=== PATIENT | female | born 1975 | race Two or more races ===

== ENCOUNTER 2024-11-05 11:13 | Outpatient (AMB) | payer OTHER, SELFPAY ==
--- NOTE | 2024-11-05 11:27 | MHC.OFFVIS ---
Intake Visit Reasons: 6 mnts Migraine Allergies No Known Allergies Allergy (Verified 11/05/24 11:37) Medication List - Last Reconciled 11/05/24 by Jannie Brown CNP bupropion HCl XL 300 mg PO QAM smdpmsyvgw-jsrafjccvbzcs-jaos 50-325-40 mg 1 - 2 tabs PO DAILY PRN cholecalciferol (vitamin D3) 1,250 mcg PO QWEEK gabapentin 300 mg PO BEDTIME PRN hydroxyzine HCl mg PO paroxetine HCl 40 mg PO QAM sumatriptan succinate mg PO topiramate 50 mg PO DAILY HPI Comments Details: 48 y/o woman with migraine and insomnia. She was doing okay. Migraines were much better. No significant migraines recently. She used butalbital as needed which helped with strong headaches. Sleep was on and off, but better overall. [facility] Medical History (Updated 11/05/24 @ 11:29 by Jannie Brown CNP) Depression Insomnia Migraine Review of Systems Const Denies chills, Denies daytime sleepiness, Denies fatigue, Denies fever(s), Denies frequent falls, Reports headache(s), Denies increased appetite, Denies poor appetite, Denies snoring, Denies weakness, Denies weight gain and Denies weight loss Eyes Denies loss of vision ENT Denies vertigo, Denies dizziness and Reports headache(s) Card Denies chest pain at rest, Denies chest pain with activity, Denies syncope, Denies leg edema and Denies palpitations Resp Denies snoring GI Denies constipation, Denies heartburn, Denies diarrhea and Denies nausea Denies urinary frequency, Denies urinary incontinence and Denies urinary urgency Musc Denies abnormal gait, Denies numbness and Denies tingling Skin/Breast Denies dry skin and Denies rash Neuro Denies abnormal gait, Denies vertigo, Denies dizziness, Denies syncope, Denies frequent falls, Reports headache(s), Denies lack of coordination, Denies loss of vision, Denies memory loss, Denies numbness, Denies restless legs, Denies seizure-like activity, Denies tingling, Denies paresthesias, Denies tremor(s) and Denies weakness Psych Denies anxiety, Denies depression, Denies auditory hallucinations, Denies memory loss, Denies visual hallucinations and Denies suicidal ideation Endo Denies fatigue and Denies palpitations Physical Exam Const Other: General Appearance:? normal, in no acute distress. Skin:? no rashes, no significant birthmarks. Heart:? S1, S2 normal, no murmurs. Lungs:? clear anteriorly and posteriorly. Extremities:? no edema. Psych:? alert, oriented, cognitive function intact, cooperative with exam. Neuro Other: Mental Status:?Normal attention, orientation, memory and affect.? Cranial Nerves:?Pupils are equal, round and reactive to light. External occular muscles are intact. Visual gambino are full. Face is symmetrical. Facial sensations are normal. Tongue is midline. Palate elevates symmetrically. Shoulder shrugging is normal. Hearing to bedside conversation is normal. Motor Examination:?Normal muscle tone, bulk and strength,?Deep tendon reflexes are 2+,?Plantars are flexor.? Sensory Exam:?....? Coordination:?No ataxia,?no titubation.? Gait Exam: Within normal limits. Cerebellar Signs:?Kqblhb-rs-quzc and apxf-ms-swnj is normal.? Extrapyramidal System:?No tremor, rigidity with normal facial expressions.? Pronator Drift:?Not present.? Involuntary Movements:?No tremors seen.? Speech:?Normal.? Results Reviewed Results Reviewed: MRI brain WO at in Dec 2016: one right parietal WM hyperintensity, non specific, could be vessel associated MRI LS at in 2018: minimal stenosis at L5/S1 Meds tried: Sumatriptan, butalbital Assessment & Plan Assessment & Plan (1) Migraine: Code(s): G43.909 - Migraine, unspecified, not intractable, without status migrainosus Category: Medical Qualifiers: Intractability: not intractable Migraine type: unspecified Status migrainosus presence: without status migrainosus Qualified Code(s): G43.909 - Migraine, unspecified, not intractable, without status migrainosus Plan: Continue topiramate 50mg 1 tablet at bedtime. Continue wxaxzwjbno-ZOWA-bywymlen 50-325-40mg 1-2 tablets as needed for headache #10 for 30 days (2) Insomnia: Code(s): G47.00 - Insomnia, unspecified Category: Medical Qualifiers: Insomnia type: unspecified Qualified Code(s): G47.00 - Insomnia, unspecified Plan Meds tried: sumatriptan, butalbital Medications: New topiramate 50 mg PO BEDTIME 90 tabs 1RF 90 days erefqshxyp-gslriezxklaic-etju 50-325-40 mg 1 - 2 tabs PO DAILY PRN 10 tabs 2RF migraine 30 days Discontinued topiramate Discontinued Reason: Order 50 mg PO DAILY betrlhodlq-akakfcekddqyh-nlvo 50-325-40 mg Discontinued Reason: Order 1 - 2 tabs PO DAILY PRN headache Coding Level of Care Code Est Pt Level 3 (04098) Diagnoses Migraine without status migrainosus, not intractable, unspecified migraine type G43.909 Intractability: not intractable Migraine type: unspecified Status migrainosus presence: without status migrainosus Insomnia, unspecified type G47.00 Insomnia type: unspecified
--- OUTSIDE RECORDS SUMMARY | 2024-11-05 12:29 | XMS_ITS | Clinical Summary ---
Author Organization [address] Address [address] [place] [phone] Phone Care Team Providers Care Restaurant Operations Manager Name Role Phone Paige Mcintyre MD Primary Care Prov ider Allergies Active Allergy Reactions Criticality Noted Date Comments Doxycycline Hyclate 06/30/2021 Skin reaction Quetiapine Fumarate Fainting 06/22/2016 syncope Medications cloNIDine (CATAPRES) 0.1 mg tablet Take 1 tablet (0.1 mg total) by mouth 2 (two) times a day if needed. Prescribed by her psychiatrist Active hydrOXYzine HCL (ATARAX) 25 mg tablet Take 1 tablet (25 mg total) by mouth if needed for anxiety. Prescribed by her psychiatrist Active gabapentin (NEURONTIN) 300 mg capsule Take 1 capsule (300 mg total) by mouth if needed. Prescribed by her psychiatrist Active buPROPion XL (WELLBUTRIN XL) 300 mg 24 hr tablet Take 1 tablet (300 mg total) by mouth 1 (one) time each day in the morning. Prescribed by her psychiatrist Active topiramate (TOPAMAX) 50 mg tablet Take 1 tablet (50 mg total) by mouth 1 (one) time each day. Prescribed by Neurologist Active butalbital-acet aminophen-caffe ine (FIORICET, ESGIC) 50-325-40 mg per tablet Take 2 tablets by mouth if needed for migraine. Prescribed by Neurologist Active Combivent Respimat 20-100 mcg/actuation inhaler Inhale 1 puff by mouth if needed. Active Gavilax 17 gram/dose oral powder Take 17 g by mouth 1 (one) time. 024 Active PARoxetine (PAXIL) 30 mg tablet Take 1 tablet (30 mg total) by mouth 1 (one) time each day in the morning. Prescribed by psychiatrist Active cholecalciferol (VITAMIN D-3) 1,250 mcg (50,000 unit) capsule TAKE 1 CAPSULE BY MOUTH ONE TIME PER WEEK 8 capsule 3 025 Active naproxen (NAPROSYN) 500 mg tablet Take 1 tablet (500 mg total) by mouth 2 (two) times a day if needed for mild pain (pain). 60 tablet 5 025 2024 Active SUMAtriptan (IMITREX) 25 mg tablet Take 1 tablet (25 mg total) by mouth 1 (one) time if needed for migraine. May repeat dose once in 2 hours if no relief. Do not exceed 2 doses in 24 hours. 27 tablet 025 Active magnesium oxide (MAG-OX) 400 mg magnesium tablet Take 1 tablet (400 mg total) by mouth 1 (one) time each day. 90 tablet 1 025 Active oxyCODONE (ROXICODONE) 5 mg immediate release tabletIndicatio ns:Stress incontinence Take 1 tablet (5 mg total) by mouth every 6 (six) hours if needed for severe pain for up to 10 doses. Max Daily Amount: 20 mg 10 each 025 Active senna 8.6 mg tablet Take 1 tablet (8.6 mg total) by mouth 1 (one) time each day. 30 tablet 3 025 Active Gavilax 17 gram/dose oral powder TAKE 17 GRAMS BY MOUTH ONCE EVERY DAY 510 g 3 025 Active senna 8.6 mg tablet Take 1 tablet (8.6 mg total) by mouth 1 (one) time each day. 2024 Discontinued(R eorder) polyethylene glycol (MIRALAX) 17 gram packet Take 17 g by mouth 1 (one) time each day. 510 g 3 025 2024 Discontinued Active Problems Problem Noted Date Diagnosed Date Diverticulosis 08/03/2023 Fibromyalgia 08/03/2023 Overview (03/27/2024): Following with therapy and psychiatry Perimenopause 09/29/2022 Overview (03/27/2024): Last Assessment & Plan: I counseled Norma that her sx may be as a result of perimenopausal transition. Will not be considered menopausal until one year without menses. She was encouraged to increase her weight bearing exercise to build some muscle mass and increase metabolism. LLQ abdominal pain 07/07/2022 Overview (03/27/2024): Last Assessment & Plan: I explained to Norma that her pain seems most likely related to her inflammatory findings in her bowel. As such, I recommend she keep her follow up and colonoscopy appt with GI. She could have contribution to her pain related to a cyst, but the cyst was not visualized on either of her recent imaging studies. Since the US was inconclusive, we will repeat to evaluate, but even if she had a 3 cm simple cyst still present, I explained it would not be expected to cause pain at all. She voiced understanding. I encouraged her to work on constipation and diarrhea with diet, water, fiber. She agreed. Will discuss US results when available. Mixed hyperlipidemia 06/30/2021 Cervical radiculitis 08/06/2020 Migraine 10/11/2019 Overview (03/27/2024): Followed by [facility] (Dr. Elaina Raphael) Assessment & Plan (06/27/2024 12:31 PM EDT): Patient presented to the office for migraine headaches. I discussed the varying types of headaches, and explained the differences between different types of migraine headaches. I considered alternative causes for headaches. Reassuringly, there are no red flag symptoms. I discussed goal of management of this patient headache include nonpharmacological and pharmacological approach to reduce attack frequentcy and severity; reduce patient reliance on poorly tolerated or ineffective medication; decreased patient disability and improve quality of life. After our shared discussion, we have decided to proceed with Naproxen 500 mg orally BID, PRN, Max 1250mg/day, Sumatripan (Imitrex) 25 mg orally as a single dose, may repeat in 2 hours, Max 200mg/day, Cyclobenzaprine 5 mg orally 2 times daily PRN. We discussed the drowsing effect of medication and cautioned the patient not to drive/operate any heavy machinery while on medication. I also order magnesium for 400 mg to be taken daily. Patient was also educated on lifestyle modification. Norma was counseled on decreasing alcohol and caffeine consumption; decreasing stressor, increase physical activity, regular sleep pattern and the importance of healthy weight and diet. Patient was also inform dehydration is a trigger for migraine attacks. Therefore, it is important to keep hydrated. Patient is asked to follow back with me in 1 weeks if no improvement for re-evaluation and assess their response to treatment. Patient will call with any new/worsening symptoms or medication issues. Patient is followed by neurologist. Advised patient to contact her neurologist to schedule appointment. Orders: cyclobenzaprine (FLEXERIL) 5 mg tablet; Take 1 tablet (5 mg total) by mouth 2 (two) times a day if needed for muscle spasms. Constipation 12/10/2018 DDD (degenerative disc disease), lumbar 12/11/19 Spinal stenosis of lumbar region 12/10/2018 Tobacco use disorder 06/14/2017 Vitamin D deficiency 01/03/2017 Abnormal Pap smear of cervix 09/15/2016 Overview (03/27/2024): ASCUS, HPV positive 11/3012 Major depressive disorder 09/15/2016 Asthma in adult 08/26/2016 Endometriosis 08/26/2016 Overview (03/27/2024): Last Assessment & Plan: I did review her history which is suggestive of endometriosis. I explained that this could contribute to pain, but in the absence of endometrioma on US, she could try hormonal suppression to see if her sx improve. Encounters Date Type Department Care Team Description 10/30/2024 Telephone Gastroenterology - [place] [facility] 175 [facility] [address] [place] [address] Isamar Avila PA Refill request 10/01/2024 Telephone Adult Medicine [address] [phone] Paige Mcintyre MD Cough; Nasal Congestion from Last 3 Months Immunizations Name Administration Dates Next Due Influenza Quadravalent, MDCK , 0.5ml, with preservative (Flucelvax) 6mo and older 12/29/2016 Pfizer SARS-CoV-2 COVID-19, mRNA, LNP-S, preservative free 09/22/2020,09/01/2020 Tdap Tetanus diptheria acell ular pertussis (Boostrix; Adacel) 7yo and older 08/26/2016 Surgical History Surgery Date Site/Laterality Comments TUBAL LIGATION PROCEDURE: HISTORICAL TUBAL LIGATION APPENDECTOMY PROCEDURE: HISTORICAL APPENDECTOMY OVARIAN CYST REMOVAL PROCEDURE: MT OVARIAN CYSTECTOMY UNI/BI; COMMENT: x 1-2 ??? with loss of one tube at [facility] MULTIPLE TOOTH EXTRACTIONS PROCEDURE: HISTORICAL DENTAL EXTRACTION COLPOSCOPY 02/14/2012 PROCEDURE: MT COLPOSCOPY ENTIRE VAGINA W/CERVIX IF PRESENT; COMMENT: normal appearance. No biopsy OTHER SURGICAL HISTORY PROCEDURE: MT HYSTEROSCOPY ENDOMETRIAL ABLATION BACK SURGERY 01/2019 PROCEDURE: HISTORICAL BACK SURGERY; COMMENT: ant lumb interbody fusion (ALIF) with cage, L5-S1. [place] BREAST REDUCTION 02/2019 PROCEDURE: MT BREAST REDUCTION OTHER SURGICAL HISTORY 02/2021 Bilateral PROCEDURE: MAMMOGRAM, SCREENING, BOTH BREASTS NECK SURGERY PROCEDURE: HISTORICAL NECK SURGERY; COMMENT: cervical disc surgery COLONOSCOPY PROCEDURE: HISTORICAL COLONOSCOPY SPINE SURGERY CERVICAL FUSION Medical History Medical History Date Comments Abnormal Pap smear of cervix 09/15/2016 DX: Abnormal Pap smear of cervix; COMMENT: ASCUS, HPV positive 11/3012 Asthma in adult 08/26/2016 DX:Asthma in [place] Chronic low back pain 09/15/2016 DX:Chronic low back pain Depression 09/15/2016 DX:Depression Endometriosis 08/26/2016 DX:Endometriosis History of kidney stones 09/15/2016 DX:Hist ory of kidney stones Hyperlipidemia 06/30/2021 DX:Hyperlipidemi a Ovarian cyst DX:Ovarian cyst Epiploic appendagitis DX:Epiploi c appendagitis Diverticulosis DX:Diverticulosi s Diverticulitis DX:Diverticuliti s Left lower quadrant pain DX:Left lower quadrant pain Abdominal pain DX:Abdominal noemi n Anxiety Family History Medical History Relation Name Comments No Known Problems Daughter 1 Allergies Daughter 2 Asthma Daughter 2 Asthma Father Other: Kidney Disease Half-Brother Maternal only 1 functioning kidney Drug abuse Half-Sister Maternal overdose Kidney failure Maternal Grandfather Coronary artery disease Maternal Grandmother Coronary artery disease Mother Depression Mother Other: Pulmonary Embolism Sister 1 Arthritis Sister 2 No Known Problems Son Breast cancer Neg Hx Colon cancer Neg Hx Ovarian cancer Neg Hx Relation Name Status Comments Daughter 1 Alive Daughter 2 Alive Father Half-Brother Maternal Alive Half-Sister Maternal Maternal Grandfather Maternal Grandmother Mother Alive Sister 1 Sister 2 Alive Son Alive Social History Tobacco Use Types Packs/Day Years Used Date Smoking Tobacco: Former Cigarettes 0.3 30.1 S tarted: 09/20/1994 Smokeless Tobacco: Never Tobacco Cessation:Counseling Given: Not Answered Alcohol Use Standard Drinks/Week Comments No 0 (1 standard drink = 0.6 oz pur e alcohol) Interpersonal Safety Answer Date Record ed Physical Abuse 07/25/2024 Verbal Abuse 07/25/2024 Comments No Sex and Gender Information Value Date Recorded Sex Assigned at Female 07/25/2024 7:14 AM EDT Legal Sex Female 2:18 AM EST Gender Identity Female 07/25/2024 7:14 AM EDT Sexual Orientation Straight 07/25/2024 7: 14 AM EDT Obstetrics History Para Term AB IAB SAB Ectopic Multiple Livin g Live Births 3 3 3 Date Outcome GA Total Labor Labor/2nd/3rd Weight Sex Type Anes PTL Sabrina A1 A5 Name Clin Term Term Term Last Filed Vital Signs Vital Sign Reading Time Taken Comments Blood Pressure 98/64 07/25/2024 11:19 AM EDT Pulse 67 07/25/2024 11:19 AM EDT Temperature 36.1 C (97 F) 07/25/2024 11:19 AM EDT Respiratory Rate 16 07/25/2024 11:19 AM EDT Oxygen Saturation 100% 07/25/2024 11:19 AM EDT Inhaled Oxygen Concentration - - Weight 64.4 kg (142 lb) 07/25/2024 8:04 AM EDT Height 154.9 cm (5' 0.98 ) 07/25/2024 8:04 AM ED T Body Mass Index 26.84 07/25/2024 8:04 AM EDT Plan of Treatment Upcoming Encounters Date Type Department Care Team (Late st Contact Info) Description 11/25/2024 9:15 AM EDT Office Visit Obstetrics and Gynecology - [address] [phone] Shannan Camp, MAXWELL [address] [place] [address] 01/07/2025 3:00 PM EDT Office Visit [facility] - [address] [phone] Paige Mcintyre MD [address] [place] [address] 01/09/2025 9:50 AM EDT Office Visit Gastroenterology - [place] 175 [facility] [address] [phone] Isamar Avila PA [address] [phone] 03/28/2025 10:50 AM EST Appointment Radiology Department - [address] [phone] 04/02/2025 9:45 AM EST Office Visit Obstetrics and Gynecology - [address] [phone] Mei Reis, VIANEY [address] [place] [address] Health Maintenance Due Date Last Done Comments Hepatitis B Vaccines (1 of 3 - 19+ 3-dose series) 12/05/1995 Pneumococcal Vaccine: Pediatrics (0 to 5 Years) and At-Risk Patients (6 to 49 Years) (1 of 2 - PCV) 12/05/1995 Colorectal Cancer Screening: Colonoscopy 03/26/2022 Medicare Annual Wellness Visit 03/26/2022 Social Influencers of Health Screening 03/26/2022 COVID-19 Vaccine (2023- season) 2023 09/22/2020, 09/01/2020 Depression Screening 04/17/2024 08/03/2023 Influenza Vaccine (#1) 2024 12/29/2016 Breast Cancer Screening 03/25/2026 03/25/20 24, 06/21/2023, 03/15/2023, Additional history exists DTaP,Tdap,and Td Vaccines (2 - Td or Tdap) 08/26/2026 08/26/2016 Cervical Cancer Screening: HPV 11/03/2026 11/03/2021 Cholesterol Screening (Lipid Panel) 01/07/2029 01/08/2024, 01/08/2024 HIV Screening Completed 01/08/2024, 11/01/2021 Hepatitis C Screening Completed 01/08/2024 HIB Vaccines Aged Out No longer eligi ble based on patient's age to complete this topic HPV Vaccines Aged Out No longer eligi ble based on patient's age to complete this topic Hepatitis A Vaccines Aged Out No long er eligible based on patient's age to complete this topic IPV Vaccines Aged Out No longer eligi ble based on patient's age to complete this topic MMR Vaccines Aged Out No longer eligi ble based on patient's age to complete this topic Meningococcal ACWY Vaccine Aged Out N o longer eligible based on patient's age to complete this topic Meningococcal B Vaccine Aged Out No l onger eligible based on patient's age to complete this topic RSV Immunization Patients Under 20 months Aged Out No longer eligible based on patient's age to complete this topic Varicella Vaccines Aged Out No longer eligible based on patient's age to complete this topic Medical Devices Implanted Type Area Minister Helper Device Identifier Shelf Expiration Date Model / Serial / Lot Sponge Hemostatic 2x3.25x4in Surgifoam Gel 100mm - S00 - [id number] Implanted:Qty: 1 on 07/25/2024 by Erick Esparza MD at [facility] Hemostasis N/A: Urethra [employer] [id number]/06/[id number] Sponge Surgifoam Gel 12 X 7mm - S00 - [id number] Implanted:Qty: 2 on 07/25/2024 by Erick Esparza MD at [facility] Hemostasis N/A: Urethra [employer] [id number] 07/06/[id number] Sling Mid-Urethral Lynx Sys Urinary Incontinence - S000 - [id number] Implanted:Qty: 1 on 07/25/2024 by Erick Esparza MD at [facility] Surgical Mesh Sling Implants N/A: Urethra [employer] 06/21/2026 [id number] / [id number] Procedures Procedure Name Priority Date/Time Associated Diagnosis Comments MG MAMMO DIGITAL SCREENING W ALEX BILAT Routine 03/25/2024 10:39 AM EST Encounter for screening mammogram for breast cancer HEPATITIS C SCREENING Routine 01/08/2024 LIPID PANEL Routine 01/08/2024 DEPRESSION SCREENING Routine 08/03/2023 HPV Routine 11/03/2021 HIV SCREENING Routine 11/01/2021 from Last 3 Months or Most Recently Relevant to Health Maintenance Results * MG Mammo Digital Screening w Alex bilat (03/25/2024 10:39 AM EST) Anatomical Region Laterality Modality Breast Bilateral Mammography 03/25/2024 7:45 PM EST Impressions 03/25/2024 7:48 PM EST No mammographic evidence of malignancy. BREAST DENSITY: C - The breasts are heterogeneously dense which may obscure small masses. BI-RADS CATEGORY: 2 - BENIGN RECOMMENDATION: Screening bilateral mammogram is recommended in 1 year. MAMMO LOCATION: [facility], [address] [place] [address], [id number], . -------- FINAL REPORT -------- Dictated By: Jes Chakraborty Dictated Date: 03/25/2024 19:45 ET Assigned Physician: Jes Chakraborty Reviewed and Electronically Signed By: Jes Chakraborty Signed Date: 03/25/2024 19:48 ET Workstation ID: [id number] Transcribed By: Self Edit Transcribed Date: 03/25/2024 19:45 ET Narrative 03/25/2024 7:48 PM EST EXAM: Screening Mammogram CLINICAL: 48 years old, Female, routine annual exam. History of reduction mammoplasty. COMPARISON: 03/15/2023 and as far back as 02/25/2020 TECHNIQUE: Bilateral MLO and CC views were obtained digitally with 3-D mammogram (digital breast tomosynthesis). Computer-aided detection was utilized in evaluation of this exam (CAD). FINDINGS: Multiple bilateral waxing and waning circumscribed lesions which is a pattern seen with cysts and bilateral breast cysts have been demonstrated on previous ultrasound exams. No one area has more suspicious features and another. No architectural distortion or suspicious calcifications. Procedure Note Jes Chakraborty MD - 03/25/2024 EXAM: Screening Mammogram CLINICAL: 48 years old, Female, routine annual exam. History of reductionmammoplasty. COMPARISON: 03/15/2023 and as far back as 02/25/2020 TECHNIQUE: Bilateral MLO and CC views were obtained digitally with 3-Dmammogram (digital breast tomosynthesis). Computer-aided detection wasutilized in evaluation of this exam (CAD). FINDINGS: Multiple bilateral waxing and waning circumscribed lesions which is apattern seen with cysts and bilateral breast cysts have been demonstratedon previous ultrasound exams. No one area has more suspicious featuresand another. No architectural distortion or suspicious calcifications. IMPRESSION: No mammographic evidence of malignancy. BREAST DENSITY: C - The breasts are heterogeneously dense which mayobscure small masses. BI-RADS CATEGORY: 2 - BENIGN RECOMMENDATION: Screening bilateral mammogram is recommended in 1 year. MAMMO LOCATION: [facility], [address] [place] [address], [id number], . -------- FINAL REPORT -------- Dictated By: Jes Chakraborty Dictated Date: 03/25/2024 19:45 ET Assigned Physician: Jes Chakraborty Reviewed and Electronically Signed By: Jes Chakraborty Signed Date: 03/25/2024 19:48 ET Workstation ID: [id number] Transcribed By: Self Edit Transcribed Date: 03/25/2024 19:45 ET Paige Mcintyre MD IMG BI PROCEDURES Final Result * Hepatitis C Screening (01/08/2024) [facility] Hepatitis C Screening abstracted Result [facility] HEALTH MAINTENANCE Final Result * (ABNORMAL) Lipid panel (01/08/2024) [facility] LDL/HDL Ratio 4 0 - 4 Triglycerides 161(A) 0 - 150 mg/dL Cholesterol 256(A) 0 - 200 mg/dL HDL 61 >=40 mg/dL LDL Cholesterol 163(A) 0 - 100 mg/dL Blood Venous blood specimen / Unknown Result [facility] Provider LAB BLOOD ORDERABLES Radha l Result * Depression Screening (08/03/2023) [facility] Depression Screening abstracted Result [facility] Provider HEALTH MAINTENANCE Final Result * Cervical Cancer Screening: HPV (11/03/2021) [facility] Cervical Cancer Screening: HPV negative, abstracted Result [facility] Provider HEALTH MAINTENANCE Final Result * HIV Screening (11/01/2021) [facility] HIV Screening abstracted Result [facility] HEALTH MAINTENANCE Final Result from Last 3 Months or Most Recently Relevant to Health Maintenance Insurance [facility] Member Subscriber Plan / Payer (Ef fective 2023-Present) Name:NORMA MCLEAN Relation to Subscriber:Self Name:Norma Mclean Payer ID:[id number] Group ID:[id number] Type:Not on file Address: [address] [place] [id number] Care Teams Restaurant Operations Manager Relationship Specialty Start Date End Date Paige Mcintyre MD [address] [place] [id number] PCP - General Internal Medicine 03/05/24
--- OUTSIDE RECORDS SUMMARY | 2024-11-05 12:29 | XMS_ITS | Clinical Summary ---
Author Organization [facility] Address [address] [place] [address] Care Team Providers Care Cold Roll Inspector Name Role Phone Maribel Garcia MD Primary Care Provider [phone] Social History Tobacco Use Types Packs/Day Years Used Date Smoking Tobacco: Never Assessed Sex and Gender Information Value Date Recorded Sex Assigned at Not on file Gender Identity Not on file Sexual Orientation Not on file Job Start Date Occupation Industry Not on file Not on file Not on file Plan of Treatment Health Maintenance Due Date Last Done Comments Hepatitis B Vaccines (1 of 3 - 3-dose series) 1976 Hepatitis C Screening 1976 COVID-19 Vaccine (#1) 06/06/1977 Depression Screening 1988 Preventative Health Evaluation 1994 Cervical Cancer Screening (P ap Smear) 1997 Colon Cancer Screening (Colonoscopy) 2021 Influenza Vaccine (#1) 2024 12/29/2016 DTap / Tdap / Td (2 - Td or Tdap) 08/26/2026 017 Pneumococcal Vaccine Aged Out No long er eligible based on patient's age to complete this topic RSV Ped < 20 months Aged Out No longe r eligible based on patient's age to complete this topic Care Teams Cold Roll Inspector Relationship Specialty Start Date End Date Maribel Garcia MD PCP - General Internal Medicine 12/03/18
--- OUTSIDE RECORDS SUMMARY | 2024-11-05 12:29 | XMS_ITS | Data Portability ---
Author Organization [employer] [facility] Address [address] [place] [phone] Care Team Providers Care Needle Loom Weaver Name Role Phone HIM ROBERTO OTHER Assessment Encounter Date Assessment Date Assessment LastModified by Organization Details LastModified Time 06/26/2024 06/26/2024 service called for MIKE 48 afia with hx migraine no hx CKD c/o diffuse headache, lightheadedne ss, fatigue x3d denies vision changes usually improved to PO fiorcet; however, not effective for current episode able continue regular PO intake All: doxy, seroquel VSS #Migraine trial ketorlac 30mg x1 otherwise return to primary team [email or web address] Not available 06/26/2024 20:22:40 Plan of Treatment Reminders Order Date Submit Date Provider Last Modified By Organization Details Last Modified Time Details Appointments None recorded. Lab None recorded. Referral None recorded. Procedures None recorded. Surgeries None recorded. Imaging None recorded. Medication Orders ketorolac 30 mg/mL injection solution 2024 025 [email or web address] [id number], [address] [facility] [place], [address], 20:19:47 Patient TargetsNo targets recorded. Patient InstructionsNo instructions recorded. Reason for Referral None Reported. Medical Equipment None Reported. Allergies Allergen ID Allergen Name Allergen Category Reaction Reaction Severity Criticality Documentation Date Start Date Code Code System Note Provider Name and Address Organization Details Recorded Time 82852 doxycycli ne Not available Not available Not available Not available 06/26/2024 3640 RxNorm Not Available [facility] 15:39:52 37544 Seroquel medicatio n Not available Not available Not available 06/26/2024 56136 RxNorm Not Available [facility] 21:36:35 Medications Name Sig Start Date Stop Date Status Note LastModified by Organization Details LastModified Time polyethylene glycol 3350 17 gram oral powder packet TAKE 1 PACKET BY MOUTH DAILY. TAKE DAILY FOR BOWEL MOVEMENTS active Not Available Not Available No t Available senna 8.6 mg tablet TAKE 1 TABLET BY MOUTH EVERY DAY active Not Available Not Available No t Available clonazepam 0.5 mg tablet TAKE 1/2 OR 1 TABLET BY MOUTH EVERY NIGHT AT BEDTIME NEEDED FOR ANXIETY OR INSOMNIA active Not Available Not Available No t Available sumatriptan 50 mg tablet TAKE 1 TABLET BY MOUTH EVERY DAY NEEDED FOR 30 DAYS active Not Available Not Available No t Available minoxidil 2.5 mg tablet TAKE 1/2 TABLET BY MOUTH DAILY active Not Available Not Available Not Available butalbital-a cetaminophen -caffeine 50 mg-325 mg-40 mg tablet TAKE 1-2 TABS BY MOUTH EVERY DAY NEEDED FOR HEADACHES FOR 30 DAYS active Not Available Not Available Not Available temazepam 7.5 mg capsule TAKE 1 CAPSULE BY MOUTH EVERY NIGHT AT BEDTIME INSOMNIA (REPLACES CLONIDINE) active Not Available Not Available N ot Available gabapentin 300 mg capsule 1 CAPSULE BY MOUTH EVERY NIGHT AT BEDTIME NEEDED ANXIETY, PAIN active Not Available Not Available No t Available hydroxyzine HCl 25 mg tablet TAKE 1 TABLET BY MOUTH TWICE A DAY NEEDED FOR ANXIETY/BURNETT IC ATTACK active Not Available Not Available No t Available paroxetine 40 mg tablet TAKE 1 TABLET BY MOUTH EVERY MORNING DEPRESSION/ ANXIETY active Not Available Not Available No t Available bupropion HCl XL 300 mg 24 hr tablet, extended release TAKE 1 TABLET BY MOUTH EVERY DAY IN THE MORNING active Not Available Not Available No t Available topiramate 50 mg tablet TAKE 1 TABLET BY MOUTH EVERY DAY active Not Available Not Available No t Available Gas Relief Extra Strength 125 mg chewable tablet TAKE 1 TABLET BY MOUTH EVERY 6 HOURS NEEDED FOR FLATULENCE. active Not Available Not Available Not Available cholecalcife rol (vitamin D3) 1,250 mcg (50,000 unit) capsule TAKE 1 CAPSULE BY MOUTH ONE TIME PER WEEK active Not Available Not Available No t Available ketorolac 30 mg/mL injection solution Inject 1 mL every 6 hours by intravenous route. 2024 active Not Available Not Available Not Avai lable Combivent Respimat 20 mcg-100 mcg/actuatio n solution for inhalation INHALE 1 PUFF INTO THE LUNGS EVERY 6 HOURS NEEDED (SHORTNESS OF BREATH, COUGH OR WHEEZE). active Not Available Not Available No t Available Vitals Date Recorded Oxygen saturation Oxygen saturation in Arterial blood by Pulse oximetry Heart rate Body height Body temperature Body weight Respiratory rate Systolic And Diastolic Provider Name and Address Organization Details Last Updated DateTime 98 % 98 % 90 /min 154.94 cm 97.8 [degF] 60157.8 8 g 18 /min 121/71 mm[Hg] Not Available [facility] 20:14:35 Social History None recorded. Functional Status None recorded. Mental Status None recorded. Family History Nothing Reported. Medical History No medical history recorded. Gynecological HistoryNo gynecological history recorded. Obstetrics History GPAL:G 0 P 0 0 0 0 Past Encounters Encounter ID Performer Location Encounter Start Date Encounter Closed Date Diagnosis/Indication Diagnosis SNOMED-CT Code Diagnosis ICD10 Code Diagnosis Note [id number] Maximino Ritchie MD Main - [address] [phone] 06/26/2024 20:14:33 06/27/2024 11:18:00 Migraine without aura 69234552 G43.009 Health Concerns Section Related Observation LastModified by Organization Detai ls LastModified Time None Recorded Concern Status LastModified by Organization Details LastModified Time None Recorded Advance Directives Directive None Recorded Payers Insurance Date Sequence Insurance Name Policy Number Policy Cardona Covered Member ID Cardona Member ID Guarantor Name 06/26/2024 1 [facility] - DOS ON OR AFTER 2022 - DUAL ELIGIBLE - [employer] AND ONE [employer] (MEDICARE REPLACEMENT/ADV ANTAGE - HMO) Norma Mclean [id number] Norma Mclean Notes Date Note Type Note Provider Name and Address Organization Details Recorded Time 06/26/2024 text/html [facility] Nurse Triage Notes (Susana Love - RN): Reason For Request: Pt has had a headache for several days and isnt sure if it is low bp or a migraine Chief Complaints: Low Blood Pressure, Headache, Nausea / Vomiting PMH: Anxiety Disorder, Asthma, Depression, Migraine PMH Reviewed at 06/26/2024 - 15:39 Allergies Reviewed at 06/26/2024 - 15:39 Comments: 48 year old female with PMH: low blood pressure, migraines ( takes meds for). Currently c/o 3 days of headache, and her meds not working, feels heaviness in eyes, weakness, nausea. Went to her PCP to have her b/p checked and they said she needed an appointment. Eating/drinking normal. Worried her b/p could be low and has migraine that is not going away. Educated about response time and referral process. HPajay HUIZAR .................. .................. .................. .................. .................. .................. .................. ............... Rn Anesthetist Note From Veronica Lin: Sent to a call for a pt complaining of headache. [facility] arrives on scene, pt is alert and oriented, airway is patent.Pt allergies verified: Seroquel, Doxycycline; Pt states she has history of migraines and hypotension. Pt states she is prescribed Fiorcet for migraines, but is not prescribed any medication for hypotension. Pt complains of diffuse headache, lightheadedness, nausea, and fatigue x 3 days. Pt states usually Fiorcet works, but hasn't this time. Pt is concerned that hypotension might be the cause for her symptoms. Pt states she went to PCP office today, but couldn't get an appt until tomorrow. (sitting) BP:126/83, P:70, RR:18, SpO2:98% RA, T:97.8; (standing) BP:121/71, P:90; [facility] consulted; Pt denies CKD, GI bleed/stomach ulcers, or being on blood thinners. Pt orders Toradol 30mg IM. Toradol 30mg IM administered without incident. Red flags discussed. Pt has no further questions. .................. .................. .................. .................. .................. .................. .................. ............... [facility] Consulted: Maximino Ritchie .................. .................. .................. .................. .................. .................. .................. ............... Disposition: Fulfilled Maximino Ritchie MD [address] [facility],[address] [facility], [place], [address], [facility] [place] [facility] 06/26/2024 22:54:12 OBGyn Episode No OBEpisode recorded.
== END 2024-11-05 11:46 | disposition home or self-care (01) ==
LOC: HO.HSM 11:14
PROVIDERS: PCP Internal Medicine; Referring Provider Internal Medicine; Visit Provider Registered Nurse
DX: G43.909 Migraine, unspecified, not intractable, without status migrainosus (principal); G47.00 Insomnia, unspecified
CPT/HCPCS: 99213

== ENCOUNTER → 2024-11-05 11:13 | Outpatient (BNVA) | payer OTHER, SELFPAY | PROVIDERS: PCP Internal Medicine; Referring Provider Internal Medicine; Visit Provider Registered Nurse | DX: G43.909 Migraine, unspecified, not intractable, without status migrainosus (principal); G47.00 Insomnia, unspecified | CPT/HCPCS: 99212 ==